=== PATIENT | female | born 1970 | race Caucasian/White ===

== ENCOUNTER 2016-10-02 18:48 | Emergency (ER) | payer SELFPAY ==
[2016-10-02 18:52] VITALS: BP 155/86; BMI 41.5
[2016-10-02] MEDS ORDERED: VALIUM INJ IM ONE (19:07)
--- NOTE | 2016-10-02 19:09 | DR.FBACK ---
HPI - Time Seen Time seen: 19:05 - PCP Primary Care Physician: NFD - Complaint Chief Complaint Doctor Comments: History as stated. Admits to pain of 10/10, aggravated by lifting the right extremity, sharp, onset today. Chief Complaint:: LOWER BACK PAIN, CRAMPS START IN LOWER RIGHT SIDE BACK RADIATES DOWN RIGHT LEG SINCE YESTERDAY. DENIES ANY HEAVY LIFTING, DENIES ANY TRAUMA TO BACK Self Treatment fo Chief Complaint: OTC MEDS - Source History Provided: Patient - Mode of Arrival Mode of Arrival: Ambulatory - Timing Onset of Chief Complaint: 10/01/16 - Location Back Pain Location: Right, Lower, BACK - Associated Signs and Symptoms Back Pain Symptoms: None Numbness: None Weakness: None PMH - PMH Past Medical History: Yes Past Medical History: Seizures Past Surgical History: Yes Surgical History: - Family History History of Family Medical Conditions: Yes Family Medical History: Cancer - Social History Does patient currently use any type of tobacco product: No Have you used tobacco products in the last 12 months: No Type of Tobacco Use: None Alcohol Use: None Do you use any recreational Drugs:: No Lives With: Spouse Lives Where: Home - infectious screening Have you traveled outside the country in the last 6 months?: No Isolation: Standard ROS - Review of Systems Constitutional: No Symptoms Reported Eyes: No Symptoms Reported ENTM: No Symptoms Reported Respiratoy: No Symptoms Reported Cardiovascular: No Symptoms Reported Gastrointestinal/Abdominal: No Symptoms Reported Genitourinary: No Symptoms Reported Neurological: No Symptoms Reported Musculoskeletal: Back Pain Integumentary: No Symptoms Reported Hematologic/Lymphatic: No Symptoms Reported Endocrine: No Symptoms Reported Psychiatric: No Symptoms Reported All Other Systems: Reviewed and Negative PE - Vitals Vital Signs: Temp Pulse Resp BP Pulse Ox 10/02/16 18:49 100.4 F H 79 16 155/86 98 - General Limitations: No Limitations General Appearance: Alert, In No Apparent Distress - Head Head Exam: Normal Inspection, Atraumatic - Eyes Eye exam: Normal Appearance, PERRL, EOMI - ENT ENT Exam: Normal Exam - Chest Chest Inspection: Normal Inspection, Symmetric Chest Wall Rise - Respiratory Respiratory Exam: Normal Lung Sounds Bilat Respiratory Exam: Bilateral Clear to Auscultation - Cardiovascular Cardiovascular Exam: Regular Rate, Normal Rhythm - Abdominal Exam Abdominal Exam: Normal Inspection, Normal Bowel Sounds Abdominal Tenderness: negative: RUQ, RLQ, LUQ, LLQ, Epigastrium, Suprapubic, Diffuse, Mild, Moderate, Severe, Other - Genitourinary External Exam: Female: Deferred : Speculum Exam (Female): Deferred : Bimanual Exam (female): Deferred - Extremities Extremities Exam: Normal Inspection, Full ROM - Back Back Exam: Normal Inspection - Neurological Neurological Exam: Alert, Oriented X3, CN II-XII Intact - Psychiatric Psychiatric Exam: Normal Affect - Skin Skin Exam: Warm, Dry, Intact ROR - XRAY XRAY Interpreted by: Radiologist (L Spine: There is mild disc space narrowing throughout the lumbar levels. Mild degenerative endplate changes are also present. No acute fracture or subluxation. The vertebral body heights are preserved. The facets are intact. The surrounding soft tissues appear unremarkable.) - Diagnosis Discharge Problem: Degenerative joint disease (DJD) of lumbar spine Qualifiers: Spinal osteoarthritis complication: unspecified spinal osteoarthritis Qualified Code(s): M47.816 - Spondylosis without myelopathy or radiculopathy, lumbar region - Discharge Plan Condition: Stable Prescriptions: Cyclobenzaprine HCl [FLEXERIL 10 MG *] 10 mg PO TID #30 tab Ibuprofen [MOTRIN TAB 800 MG *] 800 mg PO TID #20 tab - Follow ups/Referrals Follow ups/Referrals: NFD,None [Primary Care Provider] - 3 days - Instructions
[2016-10-02] MEDS ORDERED: VALIUM INJ ONE (19:12)
--- NOTE | 2016-10-02 20:12 | RAD ---
EXAM: Lumbar Spine X-Ray INDICATION: Lumbar pain COMPARISION: No priors for comparison TECHNIQUE: AP, lateral L-S junction, and lateral views were obtained, 3 views FINDINGS: There is mild disc space narrowing throughout the lumbar levels. Mild degenerative endplate changes are also present. No acute fracture or subluxation. The vertebral body heights are preserved. The f acets are intact. The surrounding soft tissues appear unremarkable. IMPRESSION: Mild degenerative disc changes noted throughout the lumbar spine. No acute abnormality is identified . Reported By:
== END 2016-10-02 20:21 | disposition home or self-care (01) ==
LOC: ER 18:57
DX: M47.816 Spondylosis without myelopathy or radiculopathy, lumbar region (principal)
CPT/HCPCS: 72100; 96372; 99282; 99283; J3360